=== PATIENT | female | born 2005 | race Caucasian/White ===

== ENCOUNTER 2024-12-22 15:06 | Emergency (ER) | payer OTHER ==
[2024-12-22 15:43] VITALS: TEMP 98.3; BMI 21.5
[2024-12-22] MEDS ORDERED: ACETAMINOPHEN INJECTION 100 ML ONE (16:38)
[2024-12-22] MEDS: ACETAMINOPHEN 1000 MG/100 ML BAG IVPB ONE (16:38)
[2024-12-22] MEDS: SODIUM CHLORIDE 1,000 ML IV STA (16:39)
[2024-12-22 16:47] LABS: ABSOLUTE IMMATURE GRANULOCYTES 0.02 x10^3/uL (0.0-0.031); BASOPHILS # 0.06 x10^3/uL (0.01-0.08); EOSINOPHIL % 2.5 % (0.7-5.8); EOSINOPHILS # 0.18 x10^3/uL (0.04-0.36); MCHC 32.7 g/dl (32.2-35.5); MEAN CELL VOLUME 91.7 fl (79.4-94.8); MEAN PLT VOLUME 10.2 fl (9.4-12.3); MONOCYTE # 0.45 x10^3/uL (0.24-0.86); MONOCYTE % 6.3 % (4.7-12.5); RDW 12.8 % (12.1-16.5)
[2024-12-22 16:52] LABS: EPI CELLS >36 /uL (0-25.1); HCG,QUALITATIVE URINE Negative; HYALINE CASTS 0 /uL (0-3.1); URINE APPEARANCE TURBID; URINE BACTERIA 928 /uL (0-1359); URINE BILIRUBIN NEGATIVE (NEGATIVE); URINE COLOR YELLOW; URINE GLUCOSE (UA) NEGATIVE (NEGATIVE); URINE KETONE NEGATIVE (NEGATIVE); URINE LEUK ESTERASE 1+ (NEGATIVE); URINE NITRITE NEGATIVE (NEGATIVE); URINE PROTEIN TRACE (NEGATIVE); URINE RBC 15 /uL (0-23.9); URINE UROBILINOGEN 1.0 mg/dL (0.2-1.0); URINE WBC 46 /uL (0-25.8)
[2024-12-22 17:29] LABS: GLUCOSE,RANDOM 78.0 mg/dL (74-106); TOT PROT 7.5 g/dl (6.4-8.2)
[2024-12-22 17:30] LABS: CO2 24.0 mmol/L (21-32)
[2024-12-22 17:32] LABS: ALK PHOS 85.0 U/L (40-150)
[2024-12-22 17:35] LABS: CREATININE 1.05 mg/dL (0.55-1.3); SGOT/AST 22.0 U/L (5-34); SGPT/ALT 15.0 U/L (0-55)
[2024-12-22 17:40] LABS: HCV DIAGNOSTIC IN-HOUSE W/RFLX NON-REACTIVE (NONREACTIVE); HIV INTERPRETATION NEGATIVE (NEGATIVE)
[2024-12-22] MEDS ORDERED: KETOROLAC TROMETHAMINE 30 MG/1 ML VIAL ONE (18:11)
[2024-12-22] MEDS: KETOROLAC TROMETHAMINE 30 MG/1 ML VIAL IVPUSH ONE (18:14)
[2024-12-22 20:49] VITALS: BP 99/55; PULSE 74; RESP 16
== END 2024-12-22 20:48 | disposition home or self-care (01) ==
LOC: JER 15:06
PROC: 3E033NZ Introduction of Analgesics, Hypnotics, Sedatives into Peripheral Vein, Percutaneous Approach (ICD-10-PCS; principal; 2024-12-22)
PROC: 3E0333Z Introduction of Anti-inflammatory into Peripheral Vein, Percutaneous Approach (ICD-10-PCS; 2024-12-22)
PROC: 3E0337Z Introduction of Electrolytic and Water Balance Substance into Peripheral Vein, Percutaneous Approach (ICD-10-PCS; 2024-12-22)
DX: N83.202 Unspecified ovarian cyst, left side (principal); R35.0 Frequency of micturition; R29.898 Other symptoms and signs involving the musculoskeletal system; R10.32 Left lower quadrant pain; R30.0 Dysuria; M54.50 Low back pain, unspecified
CPT/HCPCS: 36415; 74176-TC; 76830-TC; 80053; 81003; 84703; 85025; 86803; 87086; 87389; 93971-TC-RT; 99285-25